=== PATIENT | female | born 1935 | race Caucasian/White ===

== ENCOUNTER 2016-07-13 09:17 | Outpatient (CLI) | payer MEDICARE, BC ==
[~2016-07-13] VITALS: Ht 157.5 cm; Wt 102.3 kg
[2016-07-13] MEDS ORDERED: CALCIUM 600 +1 EAC3 PO (10:23)
[2016-07-13] MEDS ORDERED: BAYER CHEWABLE81 MG PO (10:23)
[2016-07-13] MEDS ORDERED: MAG-OX 400 MG400 MG PO (10:23)
[2016-07-13] MEDS ORDERED: FLAXSEED OIL1000 MG PO (10:24)
[2016-07-13] MEDS ORDERED: VERELAN180 MG PO (10:24)
[2016-07-13] MEDS ORDERED: PRINIVIL20 MG PO (10:24)
[2016-07-13] MEDS ORDERED: SALAGEN5 MG PO (10:25)
[2016-07-13] MEDS ORDERED: OPTIVE EYE DROP30 ML EACH EYE (10:25)
[2016-07-13] MEDS ORDERED: RESTASIS EYE DR30 EA EACH EYE (10:25)
[2016-07-13] MEDS ORDERED: MERIBIN5 MG PO (10:26)
[2016-07-13 10:33] VITALS: BP 142/89; Ht 157.5 cm; Wt 102.3 kg
--- NOTE | 2016-07-13 10:42 | NUR ---
1019-60 MG OF PROLIA INJECTION GIVEN IN LEFT ARM SUBQ PT TOLERATRED WELL. LOT # [id number] EXP: 09/01 104-PT DISCHARGE INSTRUCTIONS GIVEN AND WENT OVER WITH PATIENT PT STATES UNDERSTANDING AND DENIES ANY NEEDS OR CONCERNS AT THIS TIME. PACKET GIVEN PT STATES UNDERSTANDING PT DISCHARGED HOME IN STABLE CONDITION
== END 2016-07-13 10:40 | disposition home or self-care (01) ==
LOC: D.OPS 09:17
DX: M81.0 Age-related osteoporosis without current pathological fracture (principal)

== ENCOUNTER 2017-01-11 08:36 | Outpatient (CLI) | payer MEDICARE, BC ==
[~2017-01-11] VITALS: Ht 157.5 cm; Wt 56.4 kg
[~2017-01-11 08:36] MED LIST: BAYER CHEWABLE81 MG PO; CALCIUM 600 +1 EAC3 PO; FLAXSEED OIL1000 MG PO; MAG-OX 400 MG400 MG PO; MERIBIN5 MG PO; OPTIVE EYE DROP30 ML EACH EYE; PRINIVIL20 MG PO; RESTASIS EYE DR30 EA EACH EYE; SALAGEN5 MG PO; VERELAN180 MG PO
[2017-01-11 09:44] VITALS: BP 170/820; Ht 157.5 cm; Wt 56.4 kg
== END 2017-01-11 09:50 | disposition home or self-care (01) ==
LOC: D.OPS 08:36
DX: M81.0 Age-related osteoporosis without current pathological fracture (principal)

== ENCOUNTER 2017-07-19 09:17 | Outpatient (CLI) | payer MEDICARE, BC ==
[2017-07-19 10:17] VITALS: BP 134/72; BMI 23.1
== END 2017-07-19 10:35 | disposition home or self-care (01) ==
LOC: D.OPS 09:17
DX: M81.0 Age-related osteoporosis without current pathological fracture (principal)

== ENCOUNTER 2018-02-22 11:38 | Outpatient (CLI) | payer MEDICARE, BC ==
[~2018-02-22] VITALS: Ht 157.5 cm; Wt 58.6 kg
[2018-02-22 12:23] VITALS: BP 177/97; Ht 157.5 cm; Wt 58.6 kg
== END 2018-02-22 12:28 | disposition home or self-care (01) ==
LOC: D.OPS 11:38
DX: M81.0 Age-related osteoporosis without current pathological fracture (principal); Z01.812 Encounter for preprocedural laboratory examination

== ENCOUNTER 2018-08-09 12:05 | Outpatient (CLI) | payer MEDICARE ==
[~2018-08-09] VITALS: Ht 157.5 cm; Wt 60.9 kg
[2018-08-09 12:42] VITALS: BP 186/86; Ht 157.5 cm; Wt 60.9 kg
== END 2018-08-09 12:54 | disposition home or self-care (01) ==
LOC: D.OPS 12:05
PROVIDERS: ATTEND Family Medicine
DX: M81.0 Age-related osteoporosis without current pathological fracture (principal)

== ENCOUNTER 2019-02-13 12:03 | Outpatient (CLI) | payer MEDICARE ==
[~2019-02-13] VITALS: Ht 157.5 cm; Wt 62.3 kg
[2019-02-13 12:53] VITALS: BP 171/81; Ht 157.5 cm; Wt 62.3 kg
== END 2019-02-13 13:04 | disposition home or self-care (01) ==
LOC: D.OPS 12:03
PROVIDERS: ATTEND Family Medicine
DX: M81.0 Age-related osteoporosis without current pathological fracture (principal)

== ENCOUNTER 2020-01-09 13:33 | Outpatient (CLI) | payer MEDICARE ==
[~2020-01-09] VITALS: Ht 157.5 cm; Wt 56.4 kg
[2020-01-09 13:57] VITALS: BP 153/73; Ht 157.5 cm; Wt 56.4 kg
== END 2020-01-09 14:02 | disposition home or self-care (01) ==
LOC: D.OPS 13:33
PROVIDERS: ATTEND Family Medicine
DX: M81.0 Age-related osteoporosis without current pathological fracture (principal)

== ENCOUNTER → 2020-07-16 15:29 | Outpatient (CLI) | payer MEDICARE ==
[2020-05-30 11:00] VITALS: BMI 22.5
[~2020-07-16 15:29] MED LIST changes: +BUSPAR10 MG PO; +CARDURA2 MG PO; +COLACE100 MG PO; +FISH OIL 1,0001 CA1 PO; +HYDROXYCHLOROQ200 MG PO; +MULTI-DAY VITAM1 TAB PO; +PEPCID AC20 MG PO; +PREDNISONE1 MG PO
[2020-07-16 15:55] LABS: BILIRUBIN NEGATIVE (NEGATIVE); KETONE NEGATIVE (NEGATIVE); NITRITE NEGATIVE (NEGATIVE); UROBILINOGEN NORMAL mg/dL (< 2)
== END | disposition home or self-care (01) ==
LOC: D.LABREF 15:29
PROVIDERS: ATTEND Family Medicine
DX: N30.00 Acute cystitis without hematuria (principal)

== ENCOUNTER → 2020-08-28 14:19 | Outpatient (CLI) | payer MEDICARE ==
[2020-05-30 11:00] VITALS: BMI 22.5
[2020-08-28 17:05] LABS: BASOPHILS 0.2 % (0-2); HEMATOCRIT 26.4 % (36.0-48.0); HEMOGLOBIN 8.1 g/dL (12-16); IMMATURE GRANULOCYTES 0.3 % (0-5); LYMPHOCYTE ABS# 0.84 10x3/uL (1.18-3.74); LYMPHOCYTES 8.9 % (15-50); MCHC 30.7 g/dL (31.0-37.0); MCV 84.9 fL (80.0-100.0); MEAN PLATELET VOLUME 9.1 fL (7.4-10.4); MONOCYTES 6.3 % (2-11); NEUTROPHIL ABS# 7.88 10x3/uL (1.56-6.13); NEUTROPHILS 83.3 % (40-80); RBC 3.11 10x6/uL (4.00-5.40); RDW 16.1 % (11.5-14.5); WBC 9.5 10x3/uL (4.8-10.8)
[2020-08-28 17:12] LABS: PLATELET COUNT 519 10x3/uL (130-400)
[2020-08-28 17:16] LABS: ANION GAP 12.3 mmol/L (8-16); CALCIUM 9.6 mg/dL (8.5-10.1); CARBON DIOXIDE 26.8 mmol/L (21.0-32.0); POTASSIUM - SERUM 4.1 mmol/L (3.5-5.1)
== END | disposition home or self-care (01) ==
LOC: D.LABREF 14:19
PROVIDERS: ATTEND Family Medicine
DX: R41.0 Disorientation, unspecified (principal)

== ENCOUNTER → 2020-09-02 20:40 | Outpatient (CLI) | payer MEDICARE ==
[2020-05-30 11:00] VITALS: BMI 22.5
[2020-09-02 21:05] LABS: BASOPHILS 0.1 % (0-2); EOSINOPHILS 1.2 % (0-7); HEMATOCRIT 25.8 % (36.0-48.0); HEMOGLOBIN 7.9 g/dL (12-16); IMMATURE GRANULOCYTES 0.3 % (0-5); LYMPHOCYTE ABS# 0.83 10x3/uL (1.18-3.74); LYMPHOCYTES 11.3 % (15-50); MCH 26.2 pg (26.0-34.0); MCHC 30.6 g/dL (31.0-37.0); MCV 85.7 fL (80.0-100.0); MEAN PLATELET VOLUME 8.9 fL (7.4-10.4); MONOCYTES 6.5 % (2-11); NEUTROPHIL ABS# 5.94 10x3/uL (1.56-6.13); NEUTROPHILS 80.6 % (40-80); PLATELET COUNT 531 10x3/uL (130-400); RBC 3.01 10x6/uL (4.00-5.40); RDW 16.4 % (11.5-14.5); WBC 7.4 10x3/uL (4.8-10.8)
== END | disposition home or self-care (01) ==
LOC: D.LABREF 20:40
PROVIDERS: ATTEND Family Medicine
DX: D64.9 Anemia, unspecified (principal)

== ENCOUNTER 2020-09-05 11:39 | Outpatient (CLI) | payer MEDICARE ==
[~2020-09-05] VITALS: Ht 160 cm; Wt 56.4 kg
[2020-09-05 12:47] VITALS: BP 154/71; Ht 160 cm; Wt 56.4 kg
--- NOTE | 2020-09-05 16:36 | NUR ---
IV D/C'D WITH CANNULA INTACT, PRESSURE HELD AND DRSG PLACED. DISCHARGE INSTRUCTIONS GIVEN AND PT VERBALIZED AN UNDERSTANDING
== END 2020-09-05 16:35 | disposition home or self-care (01) ==
LOC: D.OPS 11:39
PROVIDERS: ATTEND Family Medicine
DX: D64.9 Anemia, unspecified (principal)

== ENCOUNTER → 2020-09-18 16:49 | Outpatient (CLI) | payer MEDICARE ==
[2020-09-05 12:47] VITALS: BMI 22.0
[~2020-09-18 16:49] MED LIST changes: +ACETAMINOPHEN325 MG PO; +MELATONIN 3 MG1 TAB PO; +RESTASIS MULTI1.5 ML EACH EYE; +SENNA LAXATIVE8.6 MG PO; +SYSTANE NIGHTT3.5 GM
[2020-09-18 19:17] LABS: BASOPHILS 0.3 % (0-2); HEMATOCRIT 30.7 % (36.0-48.0); HEMOGLOBIN 9.7 g/dL (12-16); IMMATURE GRANULOCYTES 0.1 % (0-5); LYMPHOCYTE ABS# 0.63 10x3/uL (1.18-3.74); LYMPHOCYTES 9.2 % (15-50); MCH 26.5 pg (26.0-34.0); MCHC 31.6 g/dL (31.0-37.0); MCV 83.9 fL (80.0-100.0); MEAN PLATELET VOLUME 9.8 fL (7.4-10.4); MONOCYTES 6.6 % (2-11); NEUTROPHIL ABS# 5.66 10x3/uL (1.56-6.13); NEUTROPHILS 82.8 % (40-80); PLATELET COUNT 399 10x3/uL (130-400); RBC 3.66 10x6/uL (4.00-5.40); RDW 16.2 % (11.5-14.5); WBC 6.8 10x3/uL (4.8-10.8)
== END | disposition home or self-care (01) ==
LOC: D.LABREF 16:49
PROVIDERS: ATTEND Family Medicine
DX: D64.9 Anemia, unspecified (principal)

== ENCOUNTER 2020-09-21 03:40 | Inpatient (IN) | payer MEDICARE ==
[2020-09-21] VITALS (11 sets, daily range): BP systolic 144–189; BP diastolic 57–81
[~2020-09-21] VITALS: Ht 160 cm; Wt 46.7 kg
[~2020-09-21 03:40] MED LIST changes: -ACETAMINOPHEN325 MG PO; -MELATONIN 3 MG1 TAB PO; -RESTASIS MULTI1.5 ML EACH EYE; -SENNA LAXATIVE8.6 MG PO; -SYSTANE NIGHTT3.5 GM
--- NOTE | 2020-09-21 08:30 | NUR ---
AROUSES TO VOICE WITH CONFUSION NOTED WITH DEMENTIA. RIGHT SHOULDER GAURDED ON PALPATION WITH GENERALIZED WEAKNESS NOTED TO OTHER EXTERMITIES. HEALING LACERATION NOTED TO FOREHEAD WITH NO S/S OF INFECTION NOTED. GENERALIZED BRUSING WITH ABRAISIONS NOTED TO BUE AND BLE. ULCERATION NOTED TO RIGHT HEEL WITH WET/DRY DRESSING APPLIED. FALL PRECAUTIONS APPLIED
[2020-09-21] MEDS ORDERED: MELATONIN 3 MG1 TAB PO (09:34)
[2020-09-21] MEDS ORDERED: MULTI-DAY VITAM1 TAB PO (09:35)
[2020-09-21] MEDS ORDERED: SENNA LAXATIVE8.6 MG PO (09:35)
[2020-09-21] MEDS ORDERED: RESTASIS MULTI1.5 ML EACH EYE (09:36)
[2020-09-21] MEDS ORDERED: ACETAMINOPHEN325 MG PO (09:37)
--- NOTE | 2020-09-21 16:53 | NUR ---
CLOSED REDUCTION. NO INCISION, NO COUNT REQUIRED. C ARM USED TO CONFIRM CHRONIC DISLOCATION, CONFIMED CONSENT WITH PATIENT'S DAUGHTER. PATIENT NON VERBAL.
--- NOTE | 2020-09-21 17:37 | NUR ---
BACK FROM PROCEDURE AT THIS TIME. BED LOW POSITION, CALL LIGHT IN REACH. VITAL SIGNS STABLE. CONFUSED. BED ALARM AND DEBO MAT ALARM ON. ICE PACK TO RIGHT SHOULDER IN PLACE. PURWICK IN PLACE. FREE FROM SIGNS OF DISTRESS. WILL CONTINUE TO MONITOR.
[2020-09-21] MEDS ORDERED: SYSTANE NIGHTT3.5 GM (20:06)
[2020-09-22] VITALS: BP 153/73
[2020-09-22 04:00] VITALS: BP 90/57
[2020-09-22 08:15] LABS: BASOPHILS 0 % (0-2); EOSINOPHILS 0.3 % (0-7); HEMOGLOBIN 9.5 g/dL (12-16); IMMATURE GRANULOCYTES 0.2 % (0-5); LYMPHOCYTE ABS# 0.19 10x3/uL (1.18-3.74); LYMPHOCYTES 1.7 % (15-50); MCH 26.2 pg (26.0-34.0); MCHC 31.7 g/dL (31.0-37.0); MCV 82.6 fL (80.0-100.0); MEAN PLATELET VOLUME 9.3 fL (7.4-10.4); MONOCYTES 4.7 % (2-11); NEUTROPHIL ABS# 10.51 10x3/uL (1.56-6.13); NEUTROPHILS 93.1 % (40-80); RBC 3.63 10x6/uL (4.00-5.40); RDW 16.3 % (11.5-14.5); WBC 11.3 10x3/uL (4.8-10.8)
[2020-09-22 08:16] LABS: PLATELET COUNT 311 10x3/uL (130-400)
[2020-09-22 08:28] LABS: ALBUMIN 2.4 g/dL (3.4-5.0); ANION GAP 10.8 mmol/L (8-16); BILIRUBIN - TOTAL 0.18 mg/dL (0.2-1.3); CALCIUM 11.2 mg/dL (8.5-10.1); CARBON DIOXIDE 25.7 mmol/L (21.0-32.0); CREATININE - SERUM 1.2 mg/dL (0.6-1.3); POTASSIUM - SERUM 4.5 mmol/L (3.5-5.1); PROTEIN - SERUM 8.1 g/dL (6.4-8.2)
[2020-09-22 08:58] VITALS: BP 182/82
[2020-09-22 13:33] VITALS: Ht 160 cm; Wt 46.7 kg
[2020-09-22 13:53] VITALS: BP 172/87
--- NOTE | 2020-09-22 17:03 | NUR ---
0700 BEDSIDE REPORT RECEIVED ASLEEP WITH EYES CLOSED NONVERBAL
--- NOTE | 2020-09-22 17:03 | NUR ---
0900 TOO LETHARGIC TO TAKE PO MEDS
--- NOTE | 2020-09-22 17:04 | NUR ---
1000 AWAKENED ENOUGH TO TAKE PO SIPS OF WATER PT SITTING UP RIGHT IN BED AND COUGHED WITH WARTER SIPS PLACED AN ORDER FOR SPEECH THERAPY TO PERFORM A SWALLOW EVAL
--- NOTE | 2020-09-22 17:07 | NUR ---
1100 BED BATH COMPLETE SPOKE WITH DAUGHTER IN STATE OF [place]
[2020-09-22 17:36] VITALS: BP 154/64
[2020-09-23] VITALS: BP 170/70
[2020-09-23 04:00] VITALS: BP 185/84
--- NOTE | 2020-09-23 08:14 | NUR ---
PATIENT YELLING AND DOES NOT RESPOND TO QUESTIONS ASKED. ASSESSMENT COMPLETE. BED LOW. CALL VICTOR AND PERSONAL ITEMS IN REACH. WILL CONTINUE TO MONITOR. .
[2020-09-23 09:25] VITALS: BP 170/119
--- NOTE | 2020-09-23 10:33 | NUR ---
MEDS GIVEN CRUSHED IN SMALL BITE OF APPLESAUCE. PATIENT TOOK MEDS WITHOUT DIFFICULTY.
--- NOTE | 2020-09-23 17:52 | OP ---
PATIENT NAME: CESAR SANDERS MEDICAL RECORD: [id number] :37 LOCATION:[id number] ADMISSION DATE:09/22/20 SURGEON: YAO BRENNAN MD DATE OF OPERATION: 09/21/2020 PREOPERATIVE DIAGNOSIS: Right shoulder dislocation. POSTOPERATIVE DIAGNOSIS: Chronic right shoulder dislocation. PROCEDURE PERFORMED: Closed reduction right shoulder. INDICATIONS FOR THE PROCEDURE: Ms. Sanders is an 85-year-old female with a history of dementia, who is a resident of a local [facility] facility. She reportedly fell yesterday evening and bumped her head and injured her right shoulder. She was seen in the Emergency Department where imaging was concerning for a shoulder dislocation. The closed reduction was attempted in the Emergency Department with lidocaine block, but was unsuccessful. She was therefore admitted for further care. On evaluation, she was noted to have a prominent anterior shoulder dislocation. Speaking with the residential, they do not have any history of shoulder dislocation, but noted that she is limited with movement of her right arm. She has had multiple falls recently and 2 right shoulder x-rays within the last 2 months did show no acute abnormalities. The decision was made to proceed to the operating room for attempted closed reduction. Risks, benefits and alternatives of surgery were discussed with the patient and her family and consent was obtained. DESCRIPTION OF PROCEDURE: The patient was met in the holding area where her identity and confirmation of procedure was performed. The right upper extremity was marked. She was taken to the operating room where she was placed supine on the operating table, and anesthesia was administered. Timeout was performed before initiating the case. On initiation of the case, the shoulder was manipulated with traction and posterior pressure and a closed reduction was performed. I was able to reduce the joint into place, but once reduced, motion remained limited to approximately 45 degrees of flexion and neutral external rotation. When I would let the arm down, the shoulder would sublux again anteriorly. The reduction was very tight and crepitus and in my opinion, this is a chronic shoulder dislocation. The shoulder was left in its original position and this concluded our procedure. She was turned back over to anesthesia where she was awakened and taken to recovery room in stable condition. POSTOPERATIVE PLAN: The patient is going to return to the floor for continued postoperative care. She may be able to perform mobility as tolerated with the right arm. I will do more research into the actual amount of time this shoulder has been dislocated, but surgery at this point would be a reverse total shoulder arthroplasty and I do not believe that she is a very good candidate for that procedure. COMPLICATIONS: None. ESTIMATED BLOOD LOSS: None. ANESTHESIA: Conscious sedation. TRANSINT:[id number] Voice Confirmation ID: [id number] DOCUMENT ID: [id number] OPERATIVE REPORT [id number] CESAR SANDERS BRENT M MD at 1752 CC: [id number] DICTATION DATE: 09/21/20 1656 INTERVENTIONAL TECHNOLOGIST: 09/21/202021 ADM IN [facility] [address] [place] [address]
[2020-09-23 18:14] VITALS: BP 204/64
[2020-09-23 20:00] VITALS: BP 184/72
--- NOTE | 2020-09-24 03:03 | NUR ---
I have reviewed this patient and I concur with the Shift Assessment completed by the Licensed Practical Nurse today this shift.
[2020-09-24 04:00] VITALS: BP 177/74
[2020-09-24 09:01] VITALS: BP 126/74
[2020-09-24] MEDS ORDERED: LISINOPRIL10 MG PO (10:22)
--- NOTE | 2020-09-24 11:02 | NUR ---
RESTING IN BED, NO DISTRESS NOTED, HAND FED BY STAFF, CONT TO MONITOR PAIN, ORAL CARE PROVIDED, IV INFUSING MVI BAG
--- NOTE | 2020-09-24 11:51 | NUR ---
REPORT CALLED TO [facility]
--- NOTE | 2020-09-24 13:26 | MORECARE ---
CASE MANAGEMENT DISCHARGE SUMMARY PATIENT: CESAR SANDERS UNIT: [id number] ADM DATE: 09/22/20 AGE: 85 : 36 SEX: F ROOM/BED: [id number].2232 AUTHOR: SYL,DOC PHYSICIAN: REFERRING PHYSICIAN: MINDY GILES MD DATE OF SERVICE: 09/24/20 Case Management Discharge Planning Summary COMMENTS ENTERED DATE: 09/24/20 13:16 CT COMMENT TYPE: Discharge Planning REVIEWER: Rachel Meyer CM went to assess patient for discharge planning needs and she is unable to answer any questions. I attempted to call her daughter but received a busy tone. The patient will be returning to [facility] to a skilled bed today. They will pick her up at 4:00. I called her other contact Dr Chambers to let him know, he stated that Mandi ( one of her daughters) booked a flight last night and will be here today to see her mom before she goes back to [facility]. DCP REVIEW SUMMARY ANTICIPATED D/C DATE: EXPECTED LOS : CASE STATUS: DCP Initiated INITIAL REVIEW: 09/21/2020 INITIAL REVIEWER: Rachel Meyer FINAL DISCHARGE DISPOSITION: 03 : Discharged/Trans to SNF with Medicare Certification in Anticipation of Skilled Care FINAL REVIEWER: FINAL REVIEW DATE: DCP [facility] Questions & Answers QUESTION: ANSWER : PATIENT: CESAR SANDERS ENCOUNTER: [id number] MEDICAL RECORD#: [id number] ADMISSION DATE: 09/22/2020 DISCHARGE DATE: ATTENDING MD: MINDY RAHMAN : AGE: 85 MARITAL STATUS: W DC PLAN ID: [id number] FACILITY: [facility] PRINTED ON: 09/24/20 13:26 CT All edits/amendments must be made on the electronic document DICTATION DATE: 09/24/20 1326 BAND HEAD SAW OPERATOR: OCTAVIO 09/24/20 1326 RPT#: [id number] DC DATE: STATUS: ADM IN [facility] [address] [place] [address] END OF REPORT
--- NOTE | 2020-09-24 13:38 | MORECARE ---
CASE MANAGEMENT DISCHARGE SUMMARY PATIENT: CESAR SANDERS UNIT: [id number] ADM DATE: 09/22/20 AGE: 85 : 36 SEX: F ROOM/BED: [facility] AUTHOR: RAHAT STREETER PHYSICIAN: REFERRING PHYSICIAN: MINDY GILES MD DATE OF SERVICE: 09/24/20 Case Management Discharge Planning Summary COMMENTS ENTERED DATE: 09/24/20 13:30 CT COMMENT TYPE: Discharge Planning REVIEWER: Rachel Meyer PATIENT IS AWAKE AND UNABLE TO SIGN HER CATHY AND IMM I HAVE GIVEN HER VERBAL INFORMATION AND LEFT A COPY WITH HER CM TO FOLLOW AND ASSIST NEEDED ENTERED DATE: 09/24/20 13:16 CT COMMENT TYPE: Discharge Planning REVIEWER: Rachel Meyer CM went to assess patient for discharge planning needs and she is unable to answer any questions. I attempted to call her daughter but received a busy tone. The patient will be returning to [facility] to a skilled bed today. They will pick her up at 4:00. I called her other contact Dr Chambers to let him know, he stated that Mandi ( one of her daughters) booked a flight last night and will be here today to see her mom before she goes back to [facility]. DCP REVIEW SUMMARY ANTICIPATED D/C DATE: EXPECTED LOS : CASE STATUS: DCP Initiated INITIAL REVIEW: 09/21/2020 INITIAL REVIEWER: Rachel Meyer FINAL DISCHARGE DISPOSITION: 03 : Discharged/Trans to SNF with Medicare Certification in Anticipation of Skilled Care FINAL REVIEWER: FINAL REVIEW DATE: KSP [facility] Questions & Answers QUESTION: ANSWER : PATIENT: CESAR SANDERS ENCOUNTER: [id number] MEDICAL RECORD#: [id number] ADMISSION DATE: 09/22/2020 DISCHARGE DATE: ATTENDING MD: MINDY RAHMAN : AGE: 85 MARITAL STATUS: W DC PLAN ID: [id number] FACILITY: [facility] PRINTED ON: 09/24/20 13:38 CT All edits/amendments must be made on the electronic document DICTATION DATE: 09/24/201337 SPIRAL TUBE WINDER: OCTAVIO 09/24/201337 RPT#: [id number] DC DATE: STATUS: ADM IN [facility] [address] [facility] [place] [address] END OF REPORT
[2020-09-24 13:55] VITALS: BP 121/64
--- NOTE | 2020-09-24 16:30 | NUR ---
[facility] HERE TO TAKE PT BACK PER W/C, PACKET SENT ALONG
--- NOTE | 2020-09-25 09:38 | MORECARE ---
CASE MANAGEMENT DISCHARGE SUMMARY PATIENT: CESAR SANDERS UNIT: [id number] ADM DATE: 09/22/20 AGE: 85 : 36 SEX: F ROOM/BED: [facility] AUTHOR: SYL,DOC PHYSICIAN: REFERRING PHYSICIAN: MINDY GILES MD DATE OF SERVICE: 09/25/20 Case Management Discharge Planning Summary COMMENTS ENTERED DATE: 09/24/20 13:30 CT COMMENT TYPE: Discharge Planning REVIEWER: Rachel Meyer PATIENT IS AWAKE AND UNABLE TO SIGN HER CATHY AND IMM I HAVE GIVEN HER VERBAL INFORMATION AND LEFT A COPY WITH HER CM TO FOLLOW AND ASSIST NEEDED ENTERED DATE: 09/24/20 13:16 CT COMMENT TYPE: Discharge Planning REVIEWER: Rachel Meyer CM went to assess patient for discharge planning needs and she is unable to answer any questions. I attempted to call her daughter but received a busy tone. The patient will be returning to [facility] to a skilled bed today. They will pick her up at 4:00. I called her other contact Dr Chambers to let him know, he stated that Mandi ( one of her daughters) booked a flight last night and will be here today to see her mom before she goes back to [facility]. DCP REVIEW SUMMARY ANTICIPATED D/C DATE: EXPECTED LOS : CASE STATUS: DCP Initiated INITIAL REVIEW: 09/21/2020 INITIAL REVIEWER: Rachel Meyer FINAL DISCHARGE DISPOSITION: 03 : Discharged/Trans to SNF with Medicare Certification in Anticipation of Skilled Care FINAL REVIEWER: FINAL REVIEW DATE: MAP [facility] Questions & Answers QUESTION: ANSWER : PATIENT: CESAR SANDERS ENCOUNTER: [id number] MEDICAL RECORD#: [id number] ADMISSION DATE: 09/22/2020 DISCHARGE DATE: 09/24/2020 ATTENDING MD: MINDY RAHMAN : AGE: 85 MARITAL STATUS: W DC PLAN ID: [id number] FACILITY: [facility] PRINTED ON: 09/25/20 9:37 CT All edits/amendments must be made on the electronic document DICTATION DATE: 09/25/20936 POWDER AND PRIMER CANNING LEADER: OCTAVIO 09/25/2037 RPT#: [id number] DC DATE:09/24/20 STATUS: DIS IN [facility] [address] [place] [address] END OF REPORT
--- NOTE | 2020-09-25 14:11 | MORECARE ---
CASE MANAGEMENT DISCHARGE SUMMARY PATIENT: CESAR SANDERS UNIT: [id number] ADM DATE: 09/22/20 AGE: 85 : 36 SEX: F ROOM/BED: [facility] AUTHOR: SYL,DOC PHYSICIAN: REFERRING PHYSICIAN: MINDY GILES MD DATE OF SERVICE: 09/25/20 Case Management Discharge Planning Summary COMMENTS ENTERED DATE: 09/24/20 13:30 CT COMMENT TYPE: Discharge Planning REVIEWER: Rachel Meyer PATIENT IS AWAKE AND UNABLE TO SIGN HER CATHY AND IMM I HAVE GIVEN HER VERBAL INFORMATION AND LEFT A COPY WITH HER CM TO FOLLOW AND ASSIST NEEDED ENTERED DATE: 09/24/20 13:16 CT COMMENT TYPE: Discharge Planning REVIEWER: Rachel Meyer CM went to assess patient for discharge planning needs and she is unable to answer any questions. I attempted to call her daughter but received a busy tone. The patient will be returning to [facility] to a skilled bed today. They will pick her up at 4:00. I called her other contact Dr Chambers to let him know, he stated that Mandi ( one of her daughters) booked a flight last night and will be here today to see her mom before she goes back to [facility]. DCP REVIEW SUMMARY ANTICIPATED D/C DATE: EXPECTED LOS : CASE STATUS: DCP Initiated INITIAL REVIEW: 09/21/2020 INITIAL REVIEWER: Rachel Meyer FINAL DISCHARGE DISPOSITION: 03 : Discharged/Trans to SNF with Medicare Certification in Anticipation of Skilled Care FINAL REVIEWER: FINAL REVIEW DATE: MEP [facility] Questions & Answers QUESTION: ANSWER : PATIENT: CESAR SANDERS ENCOUNTER: [id number] MEDICAL RECORD#: [id number] ADMISSION DATE: 09/22/2020 DISCHARGE DATE: 09/24/2020 ATTENDING MD: MINDY RAHMAN : AGE: 85 MARITAL STATUS: W DC PLAN ID: [id number] FACILITY: [facility] PRINTED ON: 09/25/20 14:11 CT All edits/amendments must be made on the electronic document DICTATION DATE: 09/25/201410 FROZEN PIE MAKER: OCTAVIO 09/25/201410 RPT#: [id number] DC DATE:09/24/20 STATUS: DIS IN [facility] [address] [place] [address] END OF REPORT
== END 2020-09-24 16:30 | DRG 563 ==
LOC: D.ER 03:40 → OBSVTIME 07:25 → D.MS 07:25
PROVIDERS: Family Medicine; ADMIT Family Medicine; ATTEND Family Medicine
PROC: 0RSJXZZ Reposition Right Shoulder Joint, External Approach (ICD-10-PCS; principal; 2020-09-22)
DX: M24.411 Recurrent dislocation, right shoulder (principal); I10 Essential (primary) hypertension; K21.9 Gastro-esophageal reflux disease without esophagitis; M81.0 Age-related osteoporosis without current pathological fracture; M35.00 Sjogren syndrome, unspecified; M06.9 Rheumatoid arthritis, unspecified; S00.81XA Abrasion of other part of head, initial encounter; D64.9 Anemia, unspecified; Z91.81 History of falling; R26.81 Unsteadiness on feet; W06.XXXA Fall from bed, initial encounter; G30.1 Alzheimer's disease with late onset; F02.80 Dementia in other diseases classified elsewhere, unspecified severity, without behavioral disturbance, psychotic disturbance, mood disturbance, and anxiety; F41.8 Other specified anxiety disorders